=== PATIENT | female | born 1985 | race Caucasian/White ===

== ENCOUNTER 2018-12-02 21:52 | Emergency (ER) | payer OTHER ==
[~2018-12-02] VITALS: Ht 154.9 cm; Wt 47.7 kg
[2018-12-02 22:22] LABS: BASO # 0.1 10^3/uL (0.0-0.2); BASO % 0.6 % (0.0-1.0); EOS # 0.2 10^3/uL (0.0-0.50); EOS % 2.2 % (0.0-3.0); HEMATOCRIT 41.5 % (36.0-47.0); LYMPH # 2.8 10^3/uL (1.5-4.5); LYMPH % 34.1 % (24.0-44.0); MEAN CORPUSCULAR HEMOGLOBIN 30.8 pg (27.0-33.0); MEAN CORPUSCULAR HGB CONC 33.7 g/dl (32.0-36.5); MEAN CORPUSCULAR VOLUME 91.2 fl (80.0-96.0); MONO # 0.7 10^3/uL (0.0-0.8); MONO % 8.8 % (0.0-5.0); NEUTROPHILS # 4.5 10^3/uL (1.8-7.7); NEUTROPHILS % 53.9 % (36.0-66.0); PLATELET COUNT, AUTOMATED 249 10^3/uL (150-450); RED BLOOD COUNT 4.55 10^6/uL (4.00-5.40); WHITE BLOOD COUNT 8.3 10^3/uL (4.0-10.0)
--- NOTE | 2018-12-03 00:15 | REPVR ---
EXAM: US First Trimester, Transabdominal EXAM DATE/TIME: 12/02/2018 11:06 PM CLINICAL HISTORY: 33 years old, female; Lmp or gestational age (in weeks): 10/05/18; Antepartum complications; Bleeding; ; Additional info: Vaginal bleeding TECHNIQUE: Imaging protocol: Real-time transabdominal obstetrical ultrasound of the maternal pelvis and a first trimester , less than 14 weeks 0 days, with image documentation. COMPARISON: No relevant prior studies available. FINDINGS: GESTATION: Gestation: Intrauterine gestational sac with pole. Heart rate: heartbeat 165 beats per minute. Placenta: Unremarkable. No subchorionic bleed. Amniotic fluid: Amniotic and chorionic fluid are normal for gestational age. BIOMETRY: [place]-Rump length: The crown-rump length is 1.6 cm suggesting an age of 8 weeks 0 days. The EDC is 07/14/2019. MATERNAL: Uterus: Unremarkable. Cervix: Unremarkable. Right adnexa: The right ovary measures 3.0 x 2.1 x 2.9 cm with small follicle measuring 9 x 10 x 14 mm. There is right ovarian blood flow. Left adnexa: The left ovary measures 3.1 x 2.3 x 2.9 cm and demonstrates blood flow. Intraperitoneal: No intraperitoneal free fluid. IMPRESSION: Single live intrauterine gestation with an estimated age of 8 weeks 0 days. The EDC is 07/14/2019. Electronically signed by: Marcello Liriano On 12/03/2018 00:14:58 AM
[2018-12-03 00:28] VITALS: BP 114/64
== END 2018-12-03 00:35 | disposition home or self-care (01) ==
LOC: M ED 21:52
DX: O20.0 Threatened abortion (principal); Z3A.08 8 weeks gestation of pregnancy; Z88.5 Allergy status to narcotic agent